=== PATIENT | female | born 1985 | race Hispanic/Latino ===

== ENCOUNTER 2017-01-20 15:11 | Emergency (ER) | payer OTHER ==
[2017-01-20] MEDS ORDERED: Sodium Chloride 0.9% 1,000 ML IV STA (15:36)
--- NOTE | 2017-01-20 15:42 | ED PDOC ---
HPI: Neurologic - General Time Seen by Provider: 01/20/17 15:27 Chief Complaint (Nursing): Weakness/Neurological Deficit Chief Complaint (Provider): Right sided facial weakness Source: patient Exam Limitations: no limitations - History of Present Illness Severity: moderate Allergies/Adverse Reactions: Allergies No Known Allergies Allergy (Verified 01/20/17 15:21) Home Medications: Ambulatory Orders Acyclovir [Zovirax] 800 mg PO 5XD 7 Days 01/20/17 Methylprednisolone [Medrol Dose Pack (21 tabs)] 4 mg PO DAILY #21 mg 01/20/17 Additional Complaint(s): Suma Sandoval is a 31 y/o female presenting to the ER on 01/20/2017 with complaints of right sided lowr facial weakness. Patient reports onset began Sunday in the afternoon when she was coming back from a yoga workout and had neck pain on the right while lying down. she felt a "funny" sensation to the lower side of her right face when she attempted to smile. Today she noticed her facial weakness was more, prompting her to seek medical evaluation. She states associated nausea but denies any tingling or numbness sensation, changes in vision or speech, vomiting, diarrhea, chest pain, shortness of breath, and headaches. No dizziness. No arms or legs issues. Patient also states she feels the same sensation to the right side of her tongue as well. Pt. with no injury. Ambulating with no issues. NIHSS Stroke Scale - Date/Time Evaluation Performed Date Performed: 01/20/17 Time Performed: 15:35 When Was NIHSS Performed: Baseline - How Severe is the Stroke Level of Consciousness: 0=Alert LOC to Questions: 0=Both comments correct LOC to commands: 0=Obeys both correctly Best Gaze: 0=Normal Visual: 0=No visual loss Facial: 0=Normal Motor Arm - Left: 0=No drift Motor Arm - Right: 0=No drift Motor Leg - Left: 0=No drift Motor Leg - Right: 0=No drift Limb Ataxia: 0=Absent Sensory: 0=Normal Best Language: 0=No aphasia Dysarthia: 0=Normal articulation Extinction & Inattention (Neglect): 0=Normal, no object Score: 0 rTPA Inclusion/Exclusion - Refusal of Treatment Patient Refused Treatment: No - Inclusion Criteria for Altepase Patient is 18 years or Older: Yes The Clinical Diagnosis of Ischemic Stroke That is Causing a Potentially Disabling Neurological Deficit: No Time of Onset is Well Established to be Less Than 270 Minute Before Treatment Would Begin: No Risk/Benefit Discussed With Patient/Family Member Present: No Past Medical History Reviewed: Historical Data, Nursing Documentation, Vital Signs Vital Signs: Last Vital Signs Temp 97.3 F L 01/20/17 15:21 Pulse 77 01/20/17 15:21 Resp 16 01/20/17 15:21 BP 135/85 01/20/17 15:21 Pulse Ox 97 01/20/17 15:21 - Medical History PMH: No Chronic Diseases - Surgical History Surgical History: No Surg Hx - Family History Family History: States: Unknown Family Hx - Living Arrangements Living Arrangements: With Family - Social History Current smoker - smoking cessation education provided: No Alcohol: None Drugs: Denies - Home Medications Home Medications: Ambulatory Orders Medication Instructions Recorded Acyclovir [Zovirax] 800 mg PO 5XD 7 Days 01/20/17 Methylprednisolone [Medrol Dose 4 mg PO DAILY #21 mg 01/20/17 Pack (21 tabs)] - Allergies Allergies/Adverse Reactions: Allergies Allergy/AdvReac Type Severity Reaction Status Date / Time No Known Allergies Allergy Verified 01/20/17 15:21 Review of Systems ROS Statement: Except As Marked, All Systems Reviewed And Found Negative Eyes: Negative for: Vision Change ENT: Negative for: Nose Pain, Nose Congestion, Mouth Pain, Throat Pain Cardiovascular: Negative for: Chest Pain Respiratory: Negative for: Shortness of Breath Gastrointestinal: Positive for: Nausea. Negative for: Vomiting, Diarrhea Musculoskeletal: Positive for: Neck Pain Neurological: Positive for: Weakness, Dizziness. Negative for: Confusion, Seizures, Headache Physical Exam - Reviewed Nursing Documentation Reviewed: Yes Vital Signs Reviewed: Yes - Physical Exam Appears: Positive for: Non-toxic, No Acute Distress Head Exam: Positive for: ATRAUMATIC, NORMOCEPHALIC Skin: Positive for: Normal Color. Negative for: Rash Eye Exam: Positive for: Normal appearance, EOMI, PERRL ENT: Negative for: Nasal Congestion, Pharyngeal Erythema, Tonsillar Exudate Neck: Positive for: Normal, Painless ROM, Supple Cardiovascular/Chest: Positive for: Regular Rate, Rhythm. Negative for: Murmur Respiratory: Positive for: Normal Breath Sounds. Negative for: Wheezing, Respiratory Distress Gastrointestinal/Abdominal: Positive for: Normal Exam, Soft. Negative for: Tenderness Back: Positive for: Normal Inspection. Negative for: L CVA Tenderness, R CVA Tenderness Extremity: Positive for: Normal ROM. Negative for: Tenderness, Pedal Edema, Deformity, Swelling Neurologic/Psych: Positive for: Alert, Oriented, Facial Droop ((+) right lower but not complete paraylsis; upper part is moving normally). Negative for: Motor /Sensory Deficits (no sensory deficits on face; no tongue deviation; forehead and upper face spared) - Laboratory Results Result Diagrams: 01/20/17 15:45 01/20/17 15:45 - ECG ECG: Positive for: Interpreted By Me, Viewed By Me ECG Rhythm: Positive for: Normal QRS, Normal ST Segment, Sinus Rhythm O2 Sat by Pulse Oximetry: 97 Pulse Ox Interpretation: Normal - CT Scan/US ct Other Rad Studies (CT/US): Read By Radiologist Other Rad Interpretation: no acute - Progress ED Course And Treament: 1702: Stable. Spoke with Dr. Lewis, neurology. Made aware of full presentation and findings. 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 Pt. to be put on medrol dose pack and acyclovir. Fu in 2-3 days. Pt. aaox3. comfortable. Not drooling. Able to close mouth and eyes. Medical Decision Making Medical Decision Makin:27 Initial Impression- Right sided lower facial droop Initial Plan- * CT Head w/o contrast * EKG * CMP * Lipid Panel * Troponin I * CBC w/ differential * PT * PTT * CXR * Sodium Chloride 1,000 ml IV * Re-evaluate Documented by Joe Simon, acting as a scribe for John Simon MD. All medical record entries made by the Scribe were at my direction and personally dictated by me. I have reviewed the chart and agree that the record accurately reflects my personal performance of the history, physical exam, medical decision making, and the department course for this patient. I have also personally directed, reviewed, and agree with the discharge instructions and disposition. Disposition - Clinical Impression Clinical Impression: Boyle's palsy - Patient ED Disposition Is Patient to be Admitted: No Counseled Patient/Family Regarding: Studies Performed, Diagnosis, Need For Followup, Rx Given - Disposition Referrals: [facility] [Outside] - 01/22/17 Elio Lewis MD [Staff Provider] - 01/22/17 Disposition: Routine/Home Disposition Time: 17:05 Condition: STABLE Additional Instructions: Return if not better in 3 days. See the neurologist for follow up. Prescriptions: Acyclovir [Zovirax] 800 mg PO 5XD 7 Days Methylprednisolone [Medrol Dose Pack (21 tabs)] 4 mg PO DAILY #21 mg Instructions: Boyle Palsy (ED) Forms: [employer] ([place])
[2017-01-20 15:49] LABS: BASO # 0.1 K/uL (0.0-0.2); BASO % 1.5 % (0.0-2.0); EOS # 0.2 K/uL (0.0-0.7); EOS % 2.5 % (0.0-4.0); HEMATOCRIT 42.4 % (34.0-47.0); LYMPH # 2.8 K/uL (1.0-4.3); MEAN CELL VOLUME 92.6 fl (81.0-99.0); MEAN CORPUSCULAR HEMOGLOBIN 31.1 pg (27.0-31.0); MEAN CORPUSCULAR HGB CONC 33.6 g/dL (33.0-37.0); MEAN PLATELET VOLUME 9.9 fl (7.2-11.7); MONO # 0.6 K/uL (0.0-0.8); MONO % 8.2 % (0.0-10.0); NEUT # 4.1 K/uL (1.8-7.0); NEUT % 51.8 % (50.0-75.0); WHITE BLOOD COUNT 7.9 K/uL (4.8-10.8)
[2017-01-20 16:06] LABS: PARTIAL THROMBOPLASTIN TIME 31.2 Seconds (25.6-37.1)
--- NOTE | 2017-01-20 16:19 | CT ---
PROCEDURE: CT HEAD WITHOUT CONTRAST. HISTORY: headache COMPARISON: None available. TECHNIQUE: Axial computed tomography images were obtained through the head/brain without intravenous contrast. Radiation dose: Total exam DLP = 846.96 mGy-cm. This CT exam was performed using one or more of the following dose reduction techniques: Automated exposure control, adjustment of the mA and/or kV according to patient size, and/or use of iterative reconstruction technique. FINDINGS: HEMORRHAGE: No intracranial hemorrhage. BRAIN: No mass effect or edema. No atrophy or chronic microvascular ischemic changes. VENTRICLES: There is mild asymmetry of the ventricles left-sided which is slightly larger name than the right felt to represent anatomic variation. CALVARIUM: No acute calvarial fractures. PARANASAL SINUSES: Frontal sinuses are underpneumatized/hypoplastic. Remaining visualized paranasal sinuses are well-developed and currently well-aerated so far as can be seen. MASTOID AIR CELLS: Unremarkable as visualized. No inflammatory changes. OTHER FINDINGS: None. IMPRESSION: No acute intracranial hemorrhage.
[2017-01-20 16:22] LABS: ALB/GLOB RATIO 1.5 (1.0-2.1); ALKALINE PHOSPHATASE 54 U/L (38-126); ALT/SGPT 25 U/L (9-52); AST/SGOT 29 U/L (14-36); BILIRUBIN,TOTAL 0.4 mg/dl (0.2-1.3); BLOOD UREA NITROGEN 10 mg/dl (7-17); CALCIUM 9.5 mg/dL (8.4-10.2); CARBON DIOXIDE 24 mmol/L (22-30); CHLORIDE 104 mmol/L (98-107); CHOLESTEROL 193 mg/dL (0-199); GFR AFRICAN-AMERICAN > 60; GLUCOSE,RANDOM 110 mg/dL (65-105); POTASSIUM 3.9 MMOL/L (3.6-5.0); SODIUM 140 mmol/l (132-148)
--- NOTE | 2017-01-20 16:25 | RAD ---
HISTORY: stroke eval COMPARISON: No prior. FINDINGS: LUNGS: No active pulmonary disease. PLEURA: No significant pleural effusion identified, no pneumothorax apparent. CARDIOVASCULAR: Normal. OSSEOUS STRUCTURES: No significant abnormalities. VISUALIZED UPPER ABDOMEN: Normal. OTHER FINDINGS: None. IMPRESSION: No active disease.
[2017-01-20 18:41] VITALS: BP 128/78; PULSE 78; RESP 20; TEMP 97.6; O2SAT 98
--- NOTE | 2017-01-22 16:57 | CARD ---
APPROVED REPORT EKG Measurement Heart [id number] <Conclusion> Normal sinus rhythm Nonspecific ST and T wave abnormality Incomplete RBBB Prolonged QT Abnormal ECG
== END 2017-01-20 18:41 | disposition home or self-care (01) ==
LOC: H.ER 15:11
DX: G51.0 Bell's palsy (principal)